=== PATIENT | female | born 1975 | race Caucasian/White ===

== ENCOUNTER 2017-01-03 18:11 | Inpatient (IN) | payer OTHER ==
[~2017-01-03] VITALS: Ht 162.6 cm; Wt 98.9 kg
[~2017-01-03 18:11] MED LIST: CEPH500C3 PO; IBUP600 PO; PRENCAP6 PO
[2017-01-03] MEDS ORDERED: DINOPROSTONE 10 MG INSERT-LEAVE FOR 12 HOURS VAGINAL ONE (19:00)
[2017-01-03] MEDS ORDERED: NS 1000 ML OTHER PRN (19:00)
[2017-01-03] MEDS: LACTATED RINGER'S 1000 ML INJ 1,000 ML IV SCH (19:00)
[2017-01-03] MEDS: LACTATED RINGER'S 1000 ML IV SCH (20:22)
[2017-01-03] MEDS ORDERED: CITRIC ACID-SODIUM CITRATE LIQ 30 ML UDC PO SCH (21:00)
[2017-01-03] MEDS ORDERED: LACTATED RINGER'S 1000 ML BOLUS IV PRN (21:00)
[2017-01-03] MEDS ORDERED: LIDOCAINE HCL 1% 50 ML VIAL INFIL PRN (21:00)
[2017-01-03] MEDS ORDERED: ONDANSETRON HCL 4 MG/2 ML VIAL IV PRN (21:00)
[2017-01-03] MEDS ORDERED: OXYTOCIN 30 UNITS 500ML PREMIX IV ONE (21:00)
[2017-01-03] MEDS ORDERED: MINERAL OIL 10 ML VIAL TOPICAL PRN (21:00)
[2017-01-03] MEDS ORDERED: ZOLPIDEM TARTRATE 10 MG TAB PO PRN (21:00)
[2017-01-03] MEDS ORDERED: LIDOCAINE HCL 1% 50 ML VIAL I-DERMAL PRN (21:00)
[2017-01-03] MEDS ORDERED: NS 1000 ML IV PRN (21:00)
[2017-01-03] MEDS ORDERED: NS 500 ML BOLUS IV PRN (21:00)
[2017-01-03 21:31] VITALS: BP 125/42; PULSE 89
[2017-01-03 21:41] LABS: AUTOMATED NEUTROPHIL # 5.9 TH/MM3 (1.8-7.7); BASOPHIL % 0.4 % (0.0-2.0); EOSINOPHIL # 0.4 TH/MM3 (0-0.4); EOSINOPHIL % 3.5 % (0.0-4.0); HEMATOCRIT 34.3 % (35.0-46.0); HEMO FLAGS DIFF FINAL; LYMPH % 30.8 % (9.0-44.0); LYMPHOCYTE # 3.1 TH/MM3 (1.0-4.8); MEAN CELL VOLUME 85.1 FL (80.0-100.0); MEAN CORPUSCULAR HEMOGLOBIN 28.5 PG (27.0-34.0); MEAN CORPUSCULAR HGB CONC 33.5 % (32.0-36.0); MONO % 7.3 % (0.0-8.0); PLATELET COUNT 319 TH/MM3 (150-450); RED BLOOD COUNT 4.03 MIL/MM3 (4.00-5.30); RED CELL DISTRIBUTION WIDTH 15.5 % (11.6-17.2); WHITE BLOOD COUNT 10.2 TH/MM3 (4.0-11.0)
[2017-01-03 21:45] LABS: BACTERIA, URINE OCC /hpf; BLOOD, URINE NEG (NEG); COMMENT (UR) CULT NOT INDICATED; CULTURE IF INDICATED CULT NOT INDICATED; GLUCOSE,URINE NEG (NEG); KETONE, URINE NEG (NEG); MUCUS URINE FEW /lpf (OCC); NITRITE,URINE NEG (NEG); PH, URINE 6.5 (5.0-8.5); SQUAMOUS EPITHELIAL CELL URINE 8 /hpf (0-5); URINE COLOR YELLOW (YELLW/STRAW)
[2017-01-03 23:14] VITALS: TEMP 98
[2017-01-04] VITALS (166 sets, daily range): BP systolic 99–139; BP diastolic 24–93; PULSE 18–103; RESP 16–20; TEMP 97.9–98.8; O2SAT 91–100
[2017-01-04] MEDS: LACTATED RINGER'S 1000 ML INJ 1,000 ML IV SCH ×2 (01:43→05:38)
[2017-01-04] MEDS: LACTATED RINGER'S 1000 ML IV SCH ×2 (01:43→13:53)
[2017-01-04] MEDS ORDERED: fentaNYL 2MCG-BUPIV 0.125% INJ 100 ML ONE ×2 (05:00→13:51)
--- NOTE | 2017-01-04 08:50 | PD.LABORPN ---
Subjective Subjective comfortable with epidural in place Objective Vital Signs Vital Signs Date Time Temp Pulse Resp B/P Pulse Ox O2 Delivery O2 Flow Rate FiO2 01/04/17 08:35 82 01/04/17 08:30 89 01/04/17 08:30 94 100/50 01/04/17 08:25 85 01/04/17 08:20 83 01/04/17 08:16 82 01/04/17 08:15 81 01/04/17 08:10 85 01/04/17 08:05 84 01/04/17 08:01 92 01/04/17 08:01 85 104/53 01/04/17 08:00 86 01/04/17 07:55 87 01/04/17 07:50 85 01/04/17 07:46 87 110/44 01/04/17 07:45 84 01/04/17 07:40 91 01/04/17 07:35 85 01/04/17 07:30 87 01/04/17 07:30 86 116/60 01/04/17 07:30 100 01/04/17 07:27 98.3 01/04/17 07:25 99 01/04/17 07:25 83 01/04/17 07:20 99 01/04/17 07:20 80 01/04/17 07:15 99 01/04/17 07:15 86 01/04/17 07:15 84 114/62 01/04/17 07:10 81 98 01/04/17 07:05 78 01/04/17 07:05 98 01/04/17 07:00 79 115/61 01/04/17 07:00 98 01/04/17 07:00 79 01/04/17 06:55 98 01/04/17 06:55 81 01/04/17 06:50 97 01/04/17 06:50 80 01/04/17 06:45 98 01/04/17 06:45 78 01/04/17 06:45 80 119/55 01/04/17 06:40 78 01/04/17 06:35 77 01/04/17 06:30 77 01/04/17 06:30 80 112/56 01/04/17 06:25 79 01/04/17 06:20 83 01/04/17 06:15 86 01/04/17 06:15 77 109/55 4/13/17 06:10 84 01/04/17 06:05 77 01/04/17 06:01 82 114/56 01/04/17 06:00 80 01/04/17 05:55 81 01/04/17 05:50 87 01/04/17 05:45 91 16 126/59 01/04/17 05:45 83 01/04/17 05:40 85 01/04/17 05:38 76 128/52 01/04/17 05:38 20 01/04/17 05:35 78 01/04/17 05:31 78 131/57 01/04/17 05:30 78 18 01/04/17 05:26 75 130/48 01/04/17 05:25 78 01/04/17 05:21 76 139/69 01/04/17 05:20 77 01/04/17 05:16 76 124/93 01/04/17 05:15 81 01/04/17 05:11 72 130/58 01/04/17 05:10 75 01/04/17 05:06 72 127/58 01/04/17 05:05 76 01/04/17 05:03 72 128/60 01/04/17 04:37 97.9 01/04/17 04:11 18 01/04/17 04:03 86 123/59 01/04/17 01:43 83 121/60 Objective Pelvic Exam: Cervix: 6/50/-3, posterior medium consistency. [facility] Membranes: [intact Uterine Contractions: irreg FHT's: Category: I Baseline: 140 Reactive: y Variability:mod Decels: [-] Assessment/Plan Problem List: (1) AMA (advanced maternal age) multigravida 35+ (2) Fibroid (3) Glucose tolerance decreased (4) Bartholin cyst (5) Rubella non-immune status, antepartum Assessment and Plan 41 yo with iop at 39w1d here for iol for suspected macrosomia 1) IOL s/p cervidil overnight, removed at 5 am for contractions. Attempted arom but cervix stil posterior and high station. will start pitocin 2) AMA- nl anatomy scan, cfdna negative 3) Bartholin cyst - present for several years, no current abscess or pain 4) H/o macrosomia- EFW projected to be 9.5 lb, shoulder dystocia precautions 5) Fibroid uterus 6) Rubella [id number]- will need immunization pp 7) GBS neg Ada Colón MD Jan 04, 2017 08:50
[2017-01-04] MEDS ORDERED: OXYTOCIN 30 UNITS-500ML PREMIX 500 ML IV SCH (10:00)
--- NOTE | 2017-01-04 10:03 | HHI.HP ---
HPI Date Seen: Jan 03, 2017 Travel History International Travel<30 Days: No Contact w/Intl Traveler<30Days: No Known Affected Area: No History of Present Illness HPI 41 yo with iup at 39 wk. She was seen in clinic for meagan visit. + FM, neg vb/lof, ctx. She had a growth u/s at 35 wk that noted a 7 lb 7oz baby. She does have h/o macrosomia. She desires iol. Para: 1 Miscarriage: 2 History Past Medical History Narrative Medical AMA, fibroids, bartholin cyst, rubella non-immune Childhood asthma left breast cyst Obstetric History Obstetric History SAB x 2, one D&C 41 wk ftsvd 9 lb 4 oz Past Surgical History Narrative Surgical D&C Family History Family History: Negative Social History Alcohol Use: No Tobacco Use: No Substance Abuse: No Allergies-Medications (Allergen,Severity, Reaction): Uncoded Allergies: BART (Allergy, Unknown, 12/28/14) Home Meds Active Scripts Cephalexin (Keflex)500 Mg Uan875 Mg PO Q8 7 Days Ref 0 Prov:Italia Saxena CNM [facility] 12/31/14 Ibuprofen (Motrin 600 Mg Tab)600 Mg Qmg099 Mg PO Q6H PRN ( CRAMPING) # 30 TAB Ref 0 Prov:Italia Saxena CNM [facility] 12/31/14 Reported Medications Mv & Min W/Fe Fumarat ( 1) Cap1 Cap PO DAILY 12/28/14 Review of Systems General / Constitutional: No: Fever, Weight Gain, Chills, Other Eyes: No: Diploplia, Blurred Vision, Visual changes, Pain, Photophobia HENT: No: Headaches, Vertigo, Lightheadedness Cardiovascular: No: Irregular Rhythm, Chest Pain or Discomfort, Palpitations, Tachycardia, Syncope, Varicosities, Edema, Cyanosis Respiratory: No: Cough, Short of Breath, Other Gastrointestinal: No: Nausea, Vomiting, Diarrhea Genitourinary: No: Decreased Urinary Output, Oliguria Musculoskeletal: No: Limited ROM, Weakness, Cramping, Edema, Pain Skin: No Rash, No Itching, No Dryness, No Lumps, No Change in Pigmentation, No Change in Nails, No Alopecia, No Lesions Neurologic: No: Weakness, Dizziness, Syncope, Focal Abnormalities, Coordination Problem, Headache, Slurred Speech, Seizures Psychiatric: No: Depression, Suicidal Ideations, Homicidal Ideation Endocrine: No: Heat Intolerance, Cold Intolerance, Polydipsia, Polyuria, Other Physical Exam Vital Signs Date Time Temp Pulse Resp B/P Pulse Ox O2 Delivery O2 Flow Rate FiO2 01/04/17 09:27 20 01/04/17 09:25 76 01/04/17 09:20 77 01/04/17 09:16 78 128/65 01/04/17 09:15 78 01/04/17 09:00 79 01/04/17 09:00 76 130/61 01/04/17 08:55 80 01/04/17 08:50 78 01/04/17 08:45 78 01/04/17 08:45 82 122/63 01/04/17 08:35 82 01/04/17 08:30 89 01/04/17 08:30 94 100/50 01/04/17 08:25 85 01/04/17 08:20 83 01/04/17 08:16 82 01/04/17 08:15 81 01/04/17 08:10 85 01/04/17 08:05 84 01/04/17 08:01 92 01/04/17 08:01 85 104/53 01/04/17 08:00 86 01/04/17 07:55 87 01/04/17 07:50 85 01/04/17 07:46 87 110/44 01/04/17 07:45 84 01/04/17 07:40 91 01/04/17 07:35 85 01/04/17 07:30 87 01/04/17 07:30 86 116/60 01/04/17 07:30 100 01/04/17 07:27 98.3 01/04/17 07:25 99 01/04/17 07:25 83 01/04/17 07:20 99 01/04/17 07:20 80 01/04/17 07:15 99 01/04/17 07:15 86 01/04/17 07:15 84 114/62 01/04/17 07:10 81 98 01/04/17 07:05 78 01/04/17 07:05 98 01/04/17 07:00 79 115/61 01/04/17 07:00 98 01/04/17 07:00 79 01/04/17 06:55 98 01/04/17 06:55 81 01/04/17 06:50 97 01/04/17 06:50 80 01/04/17 06:45 98 01/04/17 06:45 78 01/04/17 06:45 80 119/55 01/04/17 06:40 78 01/04/17 06:35 77 01/04/17 06:30 77 01/04/17 06:30 80 112/56 01/04/17 06:25 79 01/04/17 06:20 83 01/04/17 06:15 86 01/04/17 06:15 77 109/55 01/04/17 06:10 84 01/04/17 06:05 77 01/04/17 06:01 82 114/56 01/04/17 06:00 80 01/04/17 05:55 81 01/04/17 05:50 87 01/04/17 05:45 91 16 126/59 01/04/17 05:45 83 01/04/17 05:40 85 01/04/17 05:38 76 128/52 01/04/17 05:38 20 01/04/17 05:35 78 01/04/17 05:31 78 131/57 01/04/17 05:30 78 18 01/04/17 05:26 75 130/48 01/04/17 05:25 78 01/04/17 05:21 76 139/69 01/04/17 05:20 77 01/04/17 05:16 76 124/93 01/04/17 05:15 81 01/04/17 05:11 72 130/58 01/04/17 05:10 75 01/04/17 05:06 72 127/58 01/04/17 05:05 76 01/04/17 05:03 72 128/60 01/04/17 04:37 97.9 01/04/17 04:11 18 01/04/17 04:03 86 123/59 01/04/17 01:43 83 121/60 01/03/17 23:14 98.0 01/03/17 21:31 89 125/42 Narrative GENERAL: Well-nourished, well-developed patient. SKIN: Warm and dry. HEAD: Normocephalic and atraumatic. EYES: No scleral icterus. No injection or drainage. ENT: No nasal drainage noted. Mucous membranes pink. Airway patent. NECK: Supple, trachea midline. No JVD. CARDIOVASCULAR: Regular rate and rhythm without murmurs, gallops, or rubs. RESPIRATORY: Breath sounds equal bilaterally. No accessory muscle use. ABDOMEN/GI: Abdomen soft, non-tender, bowel sounds present, no rebound, no guarding Gravid to 41 weeks size Fundal Height: [-] GENITOURINARY: External Genitalia: intact and normal in appearance BUS glands: bartholin cyst left labia Cervix: ft/th/high Presentation: ceph Membranes: [intact Uterine Contractions: irreg FHT's: Category:I on admission EXTREMITIES: No cyanosis or edema. BACK: Nontender without obvious deformity. No CVA tenderness. NEUROLOGICAL: Awake and alert. Motor and sensory grossly within normal limits. Five out of 5 muscle strength in all muscle groups. Normal speech. Data Data Vital Signs Reviewed: Yes Orders Physician Name Changes (01/03/17 ) Admit To Inpatient (01/03/17 ) Vital Signs (Adult) .Per protocol (01/03/17 20:38) Activity Oob Ad Armida (01/03/17 20:38) Heart (01/03/17 20:38) Amnioinfusion (01/03/17 20:38) Urinary Catheter Management .ONCE (01/03/17 20:38) Diet Liquid (01/04/17 Breakfast) Complete Blood Count With Diff (01/03/17 20:38) Hold Clot (01/03/17 20:38) Abo/Rh Blood Type (01/03/17 20:38) Urinalysis - C+S If Indicated (01/03/17 20:38) Resp Oxygen Non Rebreathe Mask (01/03/17 ) ^ Epidural / Intrathecal Infus (01/03/17 20:38) Lactated Ringer's 1000 Ml Inj (Lr 1000 M (01/03/17 21:00) Lactated Ringer's 1000 Ml Inj (Lr 1000 M (01/03/17 21:00) Sodium Chlorid 0.9% 500 Ml Inj (Ns 500 M (01/03/17 21:00) Sodium Chlor 0.9% 1000 Ml Inj (Ns 1000 M (01/03/17 21:00) Lidocaine 1% Inj (50 Ml) (Xylocaine 1% I (01/03/17 21:00) Citric Acid-Sodium Citrate Liq (Bicitra (01/03/17 21:00) Ondansetron Inj (Zofran Inj) (01/03/17 21:00) Fentanyl Inj (Fentanyl Inj) (01/03/17 21:00) Fentanyl Inj (Fentanyl Inj) (01/03/17 21:00) Oxytocin 30 Units-500ml Premix (Pitocin (01/03/17 21:00) Lidocaine 1% Inj (50 Ml) (Xylocaine 1% I (01/03/17 21:00) Light Mineral Oil (Muri-Lube Oil) (01/03/17 21:00) Zolpidem (Ambien) (01/03/17 21:00) Admit To Inpatient (01/03/17 ) Activity Oob Ad Armida (01/03/17 21:01) ^ Labor Induction (01/03/17 21:01) ^ Vaginal Insert (01/03/17 21:01) ^ Vaginal Lavage (01/03/17 21:01) Heart (01/03/17 21:01) Dinoprostone Vag Insert (Cervidil Vag In (01/03/17 19:00) Lactated Ringer's 1000 Ml Inj (Lr 1000 M (01/03/17 19:00) Sodium Chlor 0.9% 1000 Ml Inj (Ns 1000 M (01/03/17 19:00) Fentanyl 2mcg-Bupiv 0.125% Inj (Fentanyl (01/04/17 05:00) ^ Place On Chart (01/04/17 ) ^ Medication Indications (01/04/17 ) Consent (01/04/17 ) ^ No Systemic Narcotics (01/04/17 ) ^ Call Anesthesiologist (01/04/17 ) ^ Discontinue Epidural Cathete (01/04/17 ) Anticoagulant Alert (01/04/17 ) ^ Epidural Alert (01/04/17 ) ^ Non Stress Test (01/04/17 09:05) Response To Medication .Post New Med Administration, Reaction (01/04/17 09:05) ^ Discontinue Medication (01/04/17 09:05) Oxytocin 30 Units-500ml Premix (Pitocin (01/04/17 10:00) Labs Laboratory Tests Test 01/03/17 20:25 White Blood Count 10.2 Red Blood Count 4.03 Hemoglobin 11.5 Hematocrit 34.3 Mean Corpuscular Volume 85.1 Mean Corpuscular Hemoglobin 28.5 Mean Corpuscular Hemoglobin 33.5 Concent Red Cell Distribution Width 15.5 Platelet Count 319 Mean Platelet Volume 8.6 Neutrophils (%) (Auto) 58.0 Lymphocytes (%) (Auto) 30.8 Monocytes (%) (Auto) 7.3 Eosinophils (%) (Auto) 3.5 Basophils (%) (Auto) 0.4 Neutrophils # (Auto) 5.9 Lymphocytes # (Auto) 3.1 Monocytes # (Auto) 0.7 Eosinophils # (Auto) 0.4 Basophils # (Auto) 0.0 CBC Comment DIFF FINAL Differential Comment Urine Color YELLOW Urine Turbidity HAZY Urine pH 6.5 Urine Specific [place] 1.024 Urine Protein TRACE Urine Glucose (UA) NEG Urine Ketones NEG Urine Occult Blood NEG Urine Nitrite NEG Urine Bilirubin NEG Urine Urobilinogen LESS THAN 2.0 Urine Leukocyte Esterase SMALL Urine RBC 1 Urine WBC 2 Urine Squamous Epithelial 8 Cells Urine Bacteria OCC Urine Mucus FEW Microscopic Urinalysis Comment CULT NOT INDICATED Blood Type O POSITIVE Band and Hold Assessment/Plan Problem List: (1) AMA (advanced maternal age) multigravida 35+ (2) Fibroid (3) Glucose tolerance decreased (4) Bartholin cyst (5) Rubella non-immune status, antepartum Assessment and Plan 41 yo with iop at 39w0d here for iol for suspected macrosomia 1) IOL will start with cervidil. aware of iol being prolonged, increased risk of cd, risk of SD, arrest of labor due to macrosomia. She does have pelvis proven to 9 lb 5 oz 2) AMA- nl anatomy scan, cfdna negative 3) Bartholin cyst - present for several years, no current abscess or pain 4) H/o macrosomia- EFW projected to be 9.5 lb, shoulder dystocia precautions 5) Fibroid uterus 6) Rubella [id number]- will need immunization pp 7) GBS neg Colón,Ada Ace MD Jan 04, 2017 10:03
--- NOTE | 2017-01-04 11:11 | PD.LABORPN ---
Subjective Subjective comfortable with epidural Objective Vital Signs Vital Signs Date Time Temp Pulse Resp B/P Pulse Ox O2 Delivery O2 Flow Rate FiO2 01/04/17 10:50 84 01/04/17 10:45 87 01/04/17 10:45 84 123/69 01/04/17 10:40 82 01/04/17 10:35 91 01/04/17 10:30 81 01/04/17 10:30 87 119/52 01/04/17 10:25 85 01/04/17 10:20 84 01/04/17 10:15 80 01/04/17 10:15 84 115/61 01/04/17 10:10 83 01/04/17 10:05 86 01/04/17 10:00 82 01/04/17 10:00 86 116/52 01/04/17 09:55 85 01/04/17 09:50 86 01/04/17 09:46 84 111/44 01/04/17 09:45 88 01/04/17 09:40 88 01/04/17 09:35 91 01/04/17 09:31 81 134/45 01/04/17 09:30 82 01/04/17 09:27 20 01/04/17 09:25 76 01/04/17 09:20 77 01/04/17 09:16 78 128/65 01/04/17 09:15 78 01/04/17 09:00 79 01/04/17 09:00 76 130/61 01/04/17 08:55 80 01/04/17 08:50 78 01/04/17 08:45 78 01/04/17 08:45 82 122/63 01/04/17 08:35 82 01/04/17 08:30 89 01/04/17 08:30 94 100/50 01/04/17 08:25 85 01/04/17 08:20 83 01/04/17 08:16 82 01/04/17 08:15 81 01/04/17 08:10 85 01/04/17 08:05 84 01/04/17 08:01 92 01/04/17 08:01 85 104/53 01/04/17 08:00 86 01/04/17 07:55 87 01/04/17 07:50 85 01/04/17 07:46 87 110/44 01/04/17 07:45 84 01/04/17 07:40 91 01/04/17 07:35 85 01/04/17 07:30 87 01/04/17 07:30 86 116/60 01/04/17 07:30 100 01/04/17 07:27 98.3 01/04/17 07:25 99 01/04/17 07:25 83 01/04/17 07:20 99 01/04/17 07:20 80 01/04/17 07:15 99 01/04/17 07:15 86 01/04/17 07:15 84 114/62 01/04/17 07:10 81 98 01/04/17 07:05 78 01/04/17 07:05 98 01/04/17 07:00 79 115/61 01/04/17 07:00 98 01/04/17 07:00 79 01/04/17 06:55 98 01/04/17 06:55 81 01/04/17 06:50 97 01/04/17 06:50 80 01/04/17 06:45 98 01/04/17 06:45 78 01/04/17 06:45 80 119/55 01/04/17 06:40 78 01/04/17 06:35 77 01/04/17 06:30 77 01/04/17 06:30 80 112/56 01/04/17 06:25 79 01/04/17 06:20 83 01/04/17 06:15 86 01/04/17 06:15 77 109/55 01/04/17 06:10 84 01/04/17 06:05 77 01/04/17 06:01 82 114/56 01/04/17 06:00 80 01/04/17 05:55 81 01/04/17 05:50 87 01/04/17 05:45 91 16 126/59 01/04/17 05:45 83 01/04/17 05:40 85 01/04/17 05:38 76 128/52 01/04/17 05:38 20 01/04/17 05:35 78 01/04/17 05:31 78 131/57 01/04/17 05:30 78 18 01/04/17 05:26 75 130/48 01/04/17 05:25 78 01/04/17 05:21 76 139/69 01/04/17 05:20 77 01/04/17 05:16 76 124/93 01/04/17 05:15 81 01/04/17 05:11 72 130/58 01/04/17 05:10 75 01/04/17 05:06 72 127/58 01/04/17 05:05 76 01/04/17 05:03 72 128/60 01/04/17 04:37 97.9 01/04/17 04:11 18 01/04/17 04:03 86 123/59 Objective Pelvic Exam: 4 cm/50%/-1 AROM blood tinged and well applied strip category one Assessment/Plan Problem List: (1) AMA (advanced maternal age) multigravida 35+ (2) Fibroid (3) Glucose tolerance decreased (4) Bartholin cyst (5) Rubella non-immune status, antepartum Assessment and Plan anticipate Lizbet Wilson MD Jan 04, 2017 11:11
[2017-01-04] MEDS ORDERED: ePHEDrine/NS 25 MG/5 ML SYR IV PRN (14:15)
[2017-01-04] MEDS ORDERED: DO NOT ADMINISTER ANTICOAGULANTS PRN (15:00)
[2017-01-04] MEDS ORDERED: NO SYSTEM NARCOTICS PRN (15:00)
[2017-01-04] MEDS ORDERED: fentaNYL 2MCG-BUPIV 0.125% 100 ML EPIDURAL SCH (15:00)
[2017-01-04] MEDS ORDERED: SODIUM BICARBONATE 8.4% INJ 50 MEQ/50 ML SYR IV ONE (20:15)
[2017-01-04] MEDS ORDERED: LACTATED RINGER'S 1000 ML INJ 1,000 ML IV ONE (20:26)
[2017-01-04] MEDS ORDERED: DICLOFENAC SODIUM 37.5 MG/ML VIAL IV PUSH ONE (20:39)
[2017-01-04] MEDS ORDERED: OXYTOCIN 10 UNIT/ML AMP ONE (20:39)
[2017-01-04] MEDS ORDERED: OXYTOCIN INJ 20 UNITS in LACTATED RINGER'S 1000 ML INJ 1,000 ML IV ONE ×2 (20:55→21:20)
[2017-01-04] MEDS ORDERED: LACTATED RINGER'S 1000 ML INJ 1,000 ML IV SCH (20:56)
[2017-01-04] MEDS ORDERED: ACETAMINOPHEN 1000 MG/100 ML VIAL IV SCH (21:00)
[2017-01-04] MEDS ORDERED: EPIDURAL-DIPHENHYDRAMINE HCL 50 MG CAP PO PRN (21:00)
[2017-01-04] MEDS ORDERED: EPIDURAL-NALOXONE HCL 0.4 MG/ML AMP IV PRN (21:00)
[2017-01-04] MEDS ORDERED: EPIDURAL-DIPHENHYDRAMINE HCL 50 MG/ML VIAL IV PUSH PRN (21:00)
[2017-01-04] MEDS ORDERED: EPIDURAL-NO SYSTEMIC NARCOTICS PRN (21:00)
[2017-01-04] MEDS ORDERED: EPIDURAL-DO NOT ADMINISTER ANTICOAGULANTS PRN (21:00)
[2017-01-04] MEDS ORDERED: CARBOPROST TROMETHAMINE 250 MCG/ML VIAL ONE (21:05)
[2017-01-04] MEDS ORDERED: ceFAZolin 2 GM PREMIX 50 ML IV SCH (21:30)
[2017-01-04] MEDS ORDERED: CITRIC ACID-SODIUM CITRATE LIQ 30 ML UDC PO SCH (22:00)
[2017-01-04] MEDS ORDERED: MORPHINE SULFATE PF 5 MG/10 ML VIAL ONE (22:07)
[2017-01-04] MEDS ORDERED: ONDANSETRON HCL 4 MG/2 ML VIAL ONE (22:07)
--- NOTE | 2017-01-04 22:13 | PD.OB.DELI ---
Procedure Note Section Procedure Pre Op Diagnosis: (1) Arrested labor (2) AMA (advanced maternal age) multigravida 35+ (3) Fibroid (4) Glucose tolerance decreased (5) Bartholin cyst (6) Rubella non-immune status, antepartum Post Op Diagnosis: (1) Arrested labor (2) AMA (advanced maternal age) multigravida 35+ (3) Fibroid (4) Glucose tolerance decreased (5) Bartholin cyst (6) Rubella non-immune status, antepartum Performed by Ada Colón Procedure: Primary Low Transverse Sec (lysis of adhesions) Indication for delivery: malposition (Left occiput transverse and arrest of descent) Informed consent obtained: For anesthesia, For procedure Confirmed correct: Patient, Procedure, Site, Time-out taken Anesthesia: Epidural Medication prior to procedure: As documented in eMAR Monitoring during procedure: Blood pressure monitoring, Pulse oximetry Urinary catheter: Inserted using sterile technique, To dependent drainage, ml urine output (200) Sterile preparation: With 2% chlorexidine (Hibiclens) Position: Supine with wedge to right side, Supine with safety belt applied Operative Features Skin Incision: Pfannenstiel Uterine Incision: Low transverse w/knife / blunt ext Membranes Ruptured: Previously, Appearance of fluid (cl) Presentation: Other (LOT) Delivery of : Uneventful Infant: Male Weight: 9 lb 14 oz Status of infant: Viable, Cord blood, Nursery present Placenta delivered: Intact Medications: Antibiotics, Oxytocin, Other (hemabate) Estimated blood loss: 800ml Procedure tolerated: Well Maternal Condition: Stable Condition: Stable Ada Colón MD Jan 04, 2017 22:13
[2017-01-04] MEDS ORDERED: ZOLPIDEM TARTRATE 5 MG TAB PO PRN (22:15)
[2017-01-04] MEDS ORDERED: DOCUSATE SODIUM 50 MG/SENNA 8.6 MG TAB PO PRN (22:15)
[2017-01-04] MEDS ORDERED: OXYTOCIN 30 UNITS-500ML PREMIX 500 ML IV ONE (22:15)
[2017-01-04] MEDS ORDERED: SODIUM CHLORIDE 0.9% FLUSH 10 ML FLUSH IV FLUSH PRN (22:15)
[2017-01-04] MEDS ORDERED: ACETAMINOPHEN 325 MG TAB PO PRN (22:15)
[2017-01-04] MEDS ORDERED: oxyCODONE/ACETAMINOPHEN 5 MG/325 MG TAB PO PRN ×2 (22:15)
[2017-01-04] MEDS ORDERED: ONDANSETRON HCL 4 MG/2 ML VIAL IV PUSH PRN (22:15)
[2017-01-04] MEDS ORDERED: ACETAMINOPHEN 1000 MG/100 ML VIAL IV ONE ×2 (22:15→22:41)
[2017-01-05 00:05] VITALS: BP 107/49; PULSE 83; RESP 18; TEMP 98.4
[2017-01-05] MEDS ORDERED: LACTATED RINGER'S 1000 ML INJ 1,000 ML IV SCH (03:13)
[2017-01-05 04:10] VITALS: BP 95/56; PULSE 81; RESP 18; TEMP 97.6
[2017-01-05] MEDS: DICLOFENAC SODIUM 37.5 MG/ML VIAL IV PUSH SCH ×2 (04:26→15:00)
[2017-01-05 06:00] LABS: BASOPHIL % 0.1 % (0.0-2.0); EOSINOPHIL % 0.2 % (0.0-4.0); HEMATOCRIT 29.1 % (35.0-46.0); HEMO FLAGS DIFF FINAL; LYMPH % 10.1 % (9.0-44.0); LYMPHOCYTE # 1.8 TH/MM3 (1.0-4.8); MEAN CELL VOLUME 85.4 FL (80.0-100.0); MEAN CORPUSCULAR HEMOGLOBIN 27.9 PG (27.0-34.0); MEAN CORPUSCULAR HGB CONC 32.6 % (32.0-36.0); MONO % 5.7 % (0.0-8.0); NEUT % 83.9 % (16.0-70.0); PLATELET COUNT 256 TH/MM3 (150-450); RED BLOOD COUNT 3.41 MIL/MM3 (4.00-5.30); RED CELL DISTRIBUTION WIDTH 15.5 % (11.6-17.2); WHITE BLOOD COUNT 17.9 TH/MM3 (4.0-11.0)
[2017-01-05] MEDS ORDERED: OXYTOCIN 30 UNITS-500ML PREMIX 500 ML IV PRN (08:15)
--- NOTE | 2017-01-05 08:17 | HHI.OB ---
Subjective Post Operative Day: 1 Remarks Stable, pain managable Objective Vitals/I&O Vital Signs Date Time Temp Pulse Resp B/P Pulse Ox O2 Delivery O2 Flow Rate FiO2 01/05/17 04:10 81 95/56 01/05/17 04:10 97.6 18 01/05/17 00:05 83 18 107/49 01/05/17 00:05 98.4 01/04/17 23:20 82 18 114/76 01/04/17 23:05 18 01/04/17 23:05 18 01/04/17 23:00 117/58 01/04/17 23:00 83 91 01/04/17 22:50 83 18 114/56 97 01/04/17 22:34 80 119/55 96 01/04/17 22:05 18 01/04/17 22:05 95 01/04/17 22:05 98.0 86 18 01/04/17 22:05 99/45 01/04/17 19:57 98.0 01/04/17 18:45 93 115/51 01/04/17 18:15 91 104/54 01/04/17 17:45 88 126/59 01/04/17 17:30 88 123/69 01/04/17 17:15 88 122/56 01/04/17 17:01 100 126/60 01/04/17 17:00 18 01/04/17 17:00 98.7 01/04/17 16:45 91 112/62 01/04/17 16:41 20 01/04/17 16:30 93 108/62 01/04/17 16:15 95 105/59 01/04/17 16:02 94 118/43 01/04/17 16:01 93 112/24 01/04/17 15:45 95 131/65 01/04/17 15:30 89 127/62 01/04/17 15:25 90 01/04/17 15:20 103 01/04/17 15:15 91 110/55 01/04/17 15:15 94 01/04/17 15:10 93 01/04/17 15:05 97 01/04/17 15:03 95 01/04/17 15:01 97 01/04/17 15:00 98.8 01/04/17 15:00 99 01/04/17 14:55 102 01/04/17 14:50 99 01/04/17 14:45 94 01/04/17 14:45 98 123/54 01/04/17 14:40 95 01/04/17 14:35 96 01/04/17 14:30 95 127/57 01/04/17 14:30 97 01/04/17 14:25 93 01/04/17 14:20 87 01/04/17 14:15 86 125/62 01/04/17 14:15 93 01/04/17 14:10 86 01/04/17 14:05 85 01/04/17 14:01 90 109/46 01/04/17 14:00 88 01/04/17 13:55 86 01/04/17 13:54 18 01/04/17 13:50 86 01/04/17 13:46 85 111/54 01/04/17 13:45 86 01/04/17 13:40 93 01/04/17 13:35 84 01/04/17 13:31 78 121/52 01/04/17 13:30 81 18 01/04/17 13:25 83 01/04/17 13:21 98.3 01/04/17 13:20 90 01/04/17 13:15 86 117/56 01/04/17 13:15 92 01/04/17 13:05 88 01/04/17 13:00 85 102/50 01/04/17 13:00 16 01/04/17 13:00 82 01/04/17 12:55 86 01/04/17 12:50 86 01/04/17 12:45 16 01/04/17 12:45 81 01/04/17 12:45 86 106/48 01/04/17 12:40 85 01/04/17 12:35 83 01/04/17 12:30 84 103/48 01/04/17 12:30 89 01/04/17 12:15 88 109/46 01/04/17 12:15 92 01/04/17 12:10 88 01/04/17 12:05 86 01/04/17 12:00 89 111/50 01/04/17 12:00 86 01/04/17 11:40 82 01/04/17 11:35 81 01/04/17 11:31 92 129/65 4/13/17 11:30 90 01/04/17 11:25 92 01/04/17 11:20 83 01/04/17 11:16 89 122/74 01/04/17 11:15 81 01/04/17 11:05 81 01/04/17 11:00 83 123/68 01/04/17 11:00 98.1 01/04/17 11:00 80 01/04/17 10:55 85 01/04/17 10:50 84 01/04/17 10:45 87 01/04/17 10:45 84 123/69 01/04/17 10:40 82 01/04/17 10:35 91 01/04/17 10:30 81 01/04/17 10:30 87 119/52 01/04/17 10:25 85 01/04/17 10:20 84 01/04/17 10:15 80 01/04/17 10:15 84 115/61 01/04/17 10:10 83 01/04/17 10:05 86 01/04/17 10:00 82 01/04/17 10:00 86 116/52 01/04/17 09:55 85 01/04/17 09:50 86 01/04/17 09:46 84 111/44 01/04/17 09:45 88 01/04/17 09:40 88 01/04/17 09:35 91 01/04/17 09:31 81 134/45 01/04/17 09:30 82 01/04/17 09:27 20 01/04/17 09:25 76 01/04/17 09:20 77 01/04/17 09:16 78 128/65 01/04/17 09:15 78 01/04/17 09:00 79 01/04/17 09:00 76 130/61 01/04/17 08:55 80 01/04/17 08:50 78 01/04/17 08:45 78 01/04/17 08:45 82 122/63 01/04/17 08:35 82 01/04/17 08:30 89 01/04/17 08:30 94 100/50 01/04/17 08:25 85 01/04/17 08:20 83 01/04/17 08:16 82 01/04/17 08:15 81 Result Diagram: 4/14/17 0538 Objective Remarks GENERAL: Well-nourished, well-developed patient. CARDIOVASCULAR: Regular rate and rhythm without murmurs, gallops, or rubs. RESPIRATORY: Breath sounds equal bilaterally. No accessory muscle use. ABDOMEN/GI: Abdomen soft, non-tender, bowel sounds present. Incision: Clean, dry and intact. Fundus: Firm, non-tender at umbilicus. GENITOURINARY: Light to moderate bleeding. EXTREMITIES: No cyanosis or edema, non-tender, without signs of DVT. Medications and IVs Current Medications Medications (Trade) Dose Ordered Sig/Bharat Route Start Time Stop Time Status Last Admin (Lr 1000 ml Inj) 1,000 ml @ 100 mls/hr Q10H IV 01/05/17 03:13 01/05/17 23:12 01/05/17 04:27 (NS Flush) 2 ml BID IV FLUSH 01/05/17 09:00 (NS Flush) 2 ml UNSCH PRN IV FLUSH 01/04/17 22:15 (Mylicon Chew) 80 mg QID PRN PO 01/04/17 22:15 (Tylenol) 650 mg Q6H PRN PO 01/04/17 22:15 (Motrin) 600 mg Q6H PRN PO 01/04/17 22:15 (Percocet 5-325 Mg) 1 tab Q4H PRN PO 01/04/17 22:15 (Percocet 5-325 Mg) 2 tab Q4H PRN PO 01/04/17 22:15 (Linnette-Colace) 2 tab Q12H PRN PO 01/04/17 22:15 (Ambien) 5 mg HS PRN PO 01/04/17 22:15 (M-M-R Ii Inj) 0.5 ml ONCE ONCE SQ 01/05/17 16:00 01/05/17 16:01 (Boostrix Inj) 0.5 ml ONCE ONCE IM 01/05/17 16:00 01/05/17 16:01 (Zofran Inj) 4 mg Q6H PRN IV PUSH 01/04/17 22:15 Miscellaneous Information NO SYSTEMIC NARCOTICS TO BE GIVEN FO... UNSCH PRN .XX 01/04/17 21:00 01/05/17 20:59 (Narcan Inj) 0.4 mg UNSCH PRN IV 01/04/17 21:00 01/05/17 20:59 (Benadryl Inj) 25 mg Q6H PRN IV PUSH 01/04/17 21:00 01/05/17 20:59 (Benadryl) 50 mg Q6H PRN PO 01/04/17 21:00 01/05/17 20:59 Miscellaneous Information ALL NURSING DEPARTMENTS UNSCH PRN .XX 01/04/17 21:00 01/05/17 20:59 (Dyloject Inj) 37.5 mg Q8H IV PUSH 01/05/17 05:00 01/05/17 13:01 01/05/17 04:26 Assessment/Plan Problem List: (1) AMA (advanced maternal age) multigravida 35+ (2) Fibroid (3) Glucose tolerance decreased (4) Bartholin cyst (5) Rubella non-immune status, antepartum Assessment and Plan POD#1, stable, advance care ,plan discharge POD 2 or 3 Discharge Planning routine Jian Franco MD Jan 05, 2017 08:17
[2017-01-05 08:30] VITALS: BP 103/61; PULSE 81; RESP 16; TEMP 97.9
[2017-01-05] MEDS ORDERED: SODIUM CHLORIDE 0.9% FLUSH 10 ML FLUSH IV FLUSH SCH (09:00)
[2017-01-05] MEDS ORDERED: MEASLES, MUMPS, RUBELLA VACCINE 0.5 ML VIAL SQ ONE (16:00)
[2017-01-05] MEDS ORDERED: DIPHTH/TETANUS/ACEL PERTUSSIS (BOOSTER) 0.5 ML VIAL/PFS IM ONE (16:00)
[2017-01-05 16:20] VITALS: BP 93/48; PULSE 81; RESP 16; TEMP 97.9
[2017-01-05] MEDS: SIMETHICONE 80 MG CHEWABLE TAB PO PRN (19:28)
[2017-01-05 20:00] VITALS: BP 107/46; PULSE 80; RESP 20; TEMP 98.1
[2017-01-05] MEDS: IBUPROFEN 600 MG TAB PO PRN (22:41)
[2017-01-06] VITALS: BP 112/50; PULSE 18; PULSE 64; RESP 20; TEMP 98.3
[2017-01-06] MEDS: SIMETHICONE 80 MG CHEWABLE TAB PO PRN (05:05)
[2017-01-06] MEDS: IBUPROFEN 600 MG TAB PO PRN (09:09)
[2017-01-06 09:20] VITALS: BP 107/42; PULSE 72; RESP 20; TEMP 98
--- NOTE | 2017-01-06 10:49 | HHI.OB ---
Subjective Post Operative Day: 2 Remarks POD#2, Doing well, desires discharge home Objective Vitals/I&O Vital Signs Date Time Temp Pulse Resp B/P Pulse Ox O2 Delivery O2 Flow Rate FiO2 01/06/17 09:20 98.0 72 20 107/42 01/06/17 00:00 18 01/06/17 00:00 64 112/50 01/06/17 00:00 98.3 20 01/05/17 20:00 98.1 80 20 107/46 01/05/17 16:20 97.9 01/05/17 16:20 81 16 93/48 Result Diagram: 01/05/17 0538 Objective Remarks GENERAL: Well-nourished, well-developed patient. CARDIOVASCULAR: Regular rate and rhythm without murmurs, gallops, or rubs. RESPIRATORY: Breath sounds equal bilaterally. No accessory muscle use. ABDOMEN/GI: Abdomen soft, non-tender, bowel sounds present. Incision: Clean, dry and intact. Fundus: Firm, non-tender at umbilicus. GENITOURINARY: Light to moderate bleeding. EXTREMITIES: No cyanosis or edema, non-tender, without signs of DVT. Medications and IVs Current Medications Medications (Trade) Dose Ordered Sig/Bharat Route Start Time Stop Time Status Last Admin (NS Flush) 2 ml BID IV FLUSH 01/05/17 09:00 (NS Flush) 2 ml UNSCH PRN IV FLUSH 01/04/17 22:15 (Mylicon Chew) 80 mg QID PRN PO 01/04/17 22:15 01/06/17 05:05 (Tylenol) 650 mg Q6H PRN PO 01/04/17 22:15 (Motrin) 600 mg Q6H PRN PO 01/04/17 22:15 01/06/17 09:09 (Percocet 5-325 Mg) 1 tab Q4H PRN PO 01/04/17 22:15 01/06/17 09:09 (Percocet 5-325 Mg) 2 tab Q4H PRN PO 01/04/17 22:15 01/06/17 05:05 (Linnette-Colace) 2 tab Q12H PRN PO 01/04/17 22:15 01/06/17 09:08 (Ambien) 5 mg HS PRN PO 01/04/17 22:15 (Zofran Inj) 4 mg Q6H PRN IV PUSH 01/04/17 22:15 Assessment/Plan Problem List: (1) AMA (advanced maternal age) multigravida 35+ (2) Fibroid (3) Glucose tolerance decreased (4) Bartholin cyst (5) Rubella non-immune status, antepartum Assessment and Plan POD#2 : Is stable for discharge home Discharge Planning routine Attending Attestation seen by Jian Fox MD Jan 06, 2017 10:49
[2017-01-06] MEDS ORDERED: IBUP-232 PO (10:50)
[2017-01-06] MEDS ORDERED: OXYC1TAB63 PO (10:50)
--- NOTE | 2017-01-06 10:50 | HHI.DS ---
Admission Date Jan 03, 2017 at 18:11 Admitting Diagnosis Diagnosis: : Primary : Male Brief History 41 yo with iup at 39 wk. She was seen in clinic for meagan visit. + FM, neg vb/lof, ctx. She had a growth u/s at 35 wk that noted a 7 lb 7oz baby. She does have h/o macrosomia. She desires iol. Pt Condition on Discharge: Good Discharge Disposition: Discharge Home Discharge Instructions Diet Instructions: As Tolerated, No Restrictions Activities You Can Perform: Shower Only-No Bath Activities to Avoid: Prolonged Standing, Strenuous Activity, Driving, Sexual Activity Jian Franco MD Jan 06, 2017 10:50
--- NOTE | 2017-01-08 14:47 | MP ---
cc: ADA COLÓN MD DATE OF SURGERY 01/04/2017 PREOPERATIVE DIAGNOSIS 1. Intrauterine at 39 weeks 2. Suspected macrosomia. 3. Arrest of labor 4. Advanced maternal age 5. Fibroid uterus. 6. Rubella not immune 7. Bartholin's cyst. POSTOPERATIVE DIAGNOSIS 1. Intrauterine at 39 weeks 2. Suspected macrosomia. 3. Arrest of labor 4. Advanced maternal age 5. Fibroid uterus. 6. Rubella not immune 7. Bartholin's cyst. PROCEDURE PERFORMED 1. Primary low transverse section. 2. Collection of cord blood and cord segment for banking INDICATION The patient is a 41-year old G4, P 1-0-2-1 with an IUP at 39 weeks and 1 day who was admitted yesterday for induction of labor for suspected macrosomia. Estimated weight was predicted to be 9.5 pounds. She has a proven pelvis to 9 pounds 5 ounces with a previous . She was induced with Cervidil which was removed before 12 hours due to contractions and she was 5 cm dilated. She underwent amniotomy and Pitocin induction achieving complete dilation and effacement and was -1 station. She did have a pushing trial for over an hour and a half with her nurse. Baby developed significant molding and caput and she had turtle sign with pushing; she descended +1 station and regressed to -1 station at rest. The risks of the shoulder dystocia and likely cephalopelvic disproportion were discussed with the patient and her family. Discussed with the safest next step would be to proceed with delivery. Risks were discussed. The patient and family were in agreement with the plan of care. Consents were previously signed and on chart. SURGEON Rosalino Colón MD TRAY CHECKER [place] staff ESTIMATED BLOOD LOSS 800 mL URINE OUTPUT 200 Ml of clear urine at the end of the case. IV FLUIDS 2 liters of lactated Ringer's. SPECIMEN Cord blood, placenta for donation. COMPLICATIONS Poor uterine tone, improved with Hemabate x one. INTRAOPERATIVE FINDINGS Viable male infant. weight of 9 pounds 14 ounces, Apgars pending. Presentation left occiput transverse. Copious amniotic fluid clear. Maternal anatomy - normal tubes bilaterally, small ovaries bilaterally. A 4.5 cm pedunculated fibroid on the left fundal anterior aspect of the uterus that had adhesions to the omentum and the lower uterine segment. PROPHYLAXIS DVT prophylaxis, SCDs to lower extremities, prophylactic antibiotics Ancef 2 grams IV given pre-incision DISPOSITION Stable to PACU. She is an acceptable candidate for a PROCEDURE IN DETAIL After informed consent, the patient was taken to the operating room where epidural was redosed and found to be adequate. Nunez was already in place. The abdomen was prepped and draped in normal sterile fashion. A Pfannenstiel skin incision was made with a scalpel, carried down to underlying layer of fascia with the Bovie. The fascia was incised in the midline. This incision was extended bilaterally with Diop scissors. The Kun clamps were placed on the anterior aspect of the fascia. The rectus muscles were dissected off bluntly and with Diop scissors. The same was repeated inferiorly. The rectus muscles were bluntly. The peritoneum was entered sharply after tenting. This incision was extended bluntly. The bladder blade was placed with good visualization of the lower uterine segment. The bladder flap was created with Metzenbaum scissors and further developed digitally. An incision was made with a scalpel and extended bluntly. The head was noted to have significant molding. The head was flexed and elevated from the pelvis to the level of the hysterotomy. Gentle fundal pressure was used to deliver the infant. The was rest of the body readily followed. Delayed cord clamping was performed. The baby was handed off to awaiting pediatricians. IV infusion of Pitocin was started immediately after delivery of the infant. Cord blood was collected for banking, cord segment was collected for banking as well. The placenta was delivered with gentle uterine massage and cord traction. The uterus was exteriorized and was cleared of any debris and clots with moistened laparotomy sponges. The posterior aspect of the uterus was noted to have a pumping bleeding vessel. A cynghb-ig-kiwfb with 2-0 chromic was used to ensure hemostasis. The uterus was then noted to have decreased tone. Hemabate x1 was given with improved tone. The uterus was repaired in two layers with #1 chromic in a running locked fashion followed by an imbricating layer. The left angle of the uterus was noted to have an oozing of blood. A tlaicb-ha-zivav with 2-0 chromic was placed which ensured hemostasis. The fibroid was then inspected and noted to have an adhesive band of omentum and a band to the lower uterine segment. This was double clamped, cut and suture ligated and another small omental band to the fibroid was also double ligated, cut and suture ligated. The uterus was then returned to the abdomen. Good hemostasis was noted at the hysterotomy. Irrigation was performed. The peritoneum was closed with 2-0 chromic in a running fashion. The fascia was closed with #1 Vicryl in a running fashion. The subcutaneous tissue was irrigated and hemostasis was obtained with the Bovie. The subcutaneous tissue was closed with 2-0 chromic in a running fashion. The skin was closed with 3-0 Monocryl in a running fashion. Steri-Strips and a sterile dressing were then placed. The patient was taken to PACU in stable condition. Ada Colón MD PE/ /10:02 PM /2:41 PM MTDD
== END 2017-01-06 14:47 | disposition home or self-care (01) | DRG 766 ==
LOC: H2EB 18:11 → H1EA 01-04 23:27
PROVIDERS: ADMIT Obstetrics & Gynecology; ATTEND Obstetrics & Gynecology
PROC: 10D00Z1 Extraction of Products of Conception, Low, Open Approach (ICD-10-PCS; principal; 2017-01-04)
PROC: 3E0P7GC Introduction of Other Therapeutic Substance into Female Reproductive, Via Natural or Artificial Opening (ICD-10-PCS; 2017-01-04)
PROC: 10907ZC Drainage of Amniotic Fluid, Therapeutic from Products of Conception, Via Natural or Artificial Opening (ICD-10-PCS; 2017-01-04)
PROC: 00HU33Z Insertion of Infusion Device into Spinal Canal, Percutaneous Approach (ICD-10-PCS; 2017-01-04)
PROC: 3E0R3CZ (ICD-10-PCS; 2017-01-04)
PROC: 00HU33Z Insertion of Infusion Device into Spinal Canal, Percutaneous Approach (ICD-10-PCS; 2017-01-04)
PROC: 3E0R3CZ (ICD-10-PCS; 2017-01-04)
DX: O34.13 Maternal care for benign tumor of corpus uteri, third trimester (principal); N75.0 Cyst of Bartholin's gland; O09.513 Supervision of elderly primigravida, third trimester; Z3A.39 39 weeks gestation of pregnancy; O62.1 Secondary uterine inertia; O32.9XX0 Maternal care for malpresentation of fetus, unspecified, not applicable or unspecified; Z37.0 Single live birth
CPT/HCPCS: 59025; 81001; 85025; 86850; 86900; 86901; 90707; J0131; J1130; J2274; J2405; J2590; J7120

== ENCOUNTER 2017-01-15 03:04 | Inpatient (IN) | payer OTHER ==
[2017-01-15] VITALS (97 sets, daily range): BP systolic 83–140; BP diastolic 37–75; PULSE 65–128; RESP 16–18; TEMP 97.8–99.2; O2SAT 96–100
[~2017-01-15 03:04] MED LIST changes: -CEPH500C3 PO; +IBUP-232 PO; +OXYC1TAB63 PO
[2017-01-15] MEDS ORDERED: SODIUM CHLORIDE 0.9% FLUSH 10 ML FLUSH IV FLUSH PRN (03:30)
[2017-01-15] MEDS ORDERED: IOHEXOL 350 MG/ML 10 ML VIAL (for RAD DIAG) IV ONE (04:12)
[2017-01-15 04:15] LABS: BASOPHIL # 0.1 TH/MM3 (0-0.2); BASOPHIL % 0.7 % (0.0-2.0); EOSINOPHIL # 0.5 TH/MM3 (0-0.4); EOSINOPHIL % 4.4 % (0.0-4.0); HEMATOCRIT 33.9 % (35.0-46.0); HEMO FLAGS DIFF FINAL; LYMPH % 30.9 % (9.0-44.0); LYMPHOCYTE # 3.2 TH/MM3 (1.0-4.8); MEAN CELL VOLUME 83.4 FL (80.0-100.0); MEAN CORPUSCULAR HEMOGLOBIN 28.3 PG (27.0-34.0); MEAN CORPUSCULAR HGB CONC 33.9 % (32.0-36.0); MONO % 6.4 % (0.0-8.0); NEUT % 57.6 % (16.0-70.0); PLATELET COUNT 569 TH/MM3 (150-450); RED BLOOD COUNT 4.06 MIL/MM3 (4.00-5.30); WHITE BLOOD COUNT 10.4 TH/MM3 (4.0-11.0)
--- NOTE | 2017-01-15 04:30 | RADRPT ---
EXAM DATE/TIME: 01/15/2017 04:12 [facility] COMPARISON: No previous studies available for comparison. INDICATIONS : Vaginal bleeding. section on 01/04. IV CONTRAST: 100 cc Omnipaque 350 (iohexol) IV ORAL CONTRAST: No oral contrast ingested. RADIATION DOSE: 12.51 CTDIvol (mGy) MEDICAL HISTORY : Asthma. SURGICAL HISTORY : section. ENCOUNTER: Initial ACUITY: 1 day PAIN SCALE: 2/10 LOCATION: Bilateral lower quadrant TECHNIQUE: Volumetric scanning of the abdomen and pelvis was performed. Using automated exposure control and ad justment of the mA and/or kV according to patient size, radiation dose was kept as low as reasonably achievable to obtain optimal diagnostic quality images. FINDINGS: LOWER LUNGS: Small granuloma in left lung base. Right lung base clear. LIVER: Homogeneous density without lesion. There is no dilation of the biliary tree. No calcified gallston es. SPLEEN: Normal size without lesion. PANCREAS: Within normal limits. KIDNEYS: Normal in size and shape. There is no mass, stone or hydronephrosis. ADRENAL GLANDS: Within normal limits. VASCULAR: There is no aortic aneurysm. BOWEL/MESENTERY: The stomach, small bowel, and colon demonstrate no acute abnormality. There is no free intraperitone al air or fluid. ABDOMINAL WALL: Post surgical changes. Otherwise unremarkable. RETROPERITONEUM: There is no lymphadenopathy. BLADDER: No wall thickening or mass. REPRODUCTIVE: The uterus is prominent characteristic of a uterus. There is a small amount of air in the endometrial cavity consist with recent . No free fluid is seen in the cul-de-sac. No loculat ed fluid collections are seen. There is a 2 cm left ovarian cyst. INGUINAL: There is no lymphadenopathy or hernia. MUSCULOSKELETAL: Within normal limits for patient age. CONCLUSION: 1. Prominent uterus characteristic of recent . 2. 2 cm left ovarian cyst 3. Small granuloma left lung base. Alok Ji MD on January 15, 2017 at 4:24 Board Certified Radiologist. This report was verified electronically.
[2017-01-15 04:39] LABS: BICARBONATE 27.1 MEQ/L (21.0-32.0); POTASSIUM 3.8 MEQ/L (3.5-5.1)
[2017-01-15 04:43] LABS: BLOOD, URINE LARGE (NEG); COMMENT (UR) CULTURE INDICATED; CULTURE IF INDICATED CULTURE INDICATED; GLUCOSE,URINE NEG (NEG); KETONE, URINE NEG (NEG); MUCUS URINE FEW /lpf (OCC); NITRITE,URINE NEG (NEG)
[2017-01-15 04:44] LABS: URINE COLOR LIGHT-RED (YELLW/STRAW)
--- NOTE | 2017-01-15 05:16 | PD ---
HPI Chief Complaint: Bleeding Time Seen by Provider: 03:29 Travel History International Travel<30 days: No Contact w/Intl Traveler<30days: No Traveled to known affect area: No History of Present Illness HPI The patient's 41 years old. She is 3 para 2 (one prior ) who underwent section fortunately 7 days prior performed by Dr. Colón. Last night at about 7 PM she had a sudden onset of vaginal bleeding enough to saturate one pad. About 6 hours later a second episode of vaginal bleeding occurred causing another essentially immediate saturation of a pad. She was advised to come to the ER. Here she has no abdominal pain or symptoms consistent with acute anemia. Location genitourinary/obstetrics. Severity moderate. Timing intermittent. PFSH Past Medical History Medical History: Denies Significant Hx Respiratory: Yes (hx asthma) ?: Not Past Surgical History Section: Yes Other Surgery: Yes (cyst on breast as a child+) Social History Alcohol Use: No Tobacco Use: No Substance Use: No Allergies-Medications (Allergen,Severity, Reaction): Uncoded Allergies: BART (Allergy, Unknown, 12/28/14) Reported Meds & Prescriptions Reported Meds & Active Scripts Active Oxycodone-Acetaminophen 5-325 mg Tab 1 Tab PO Q4H PRN Ibuprofen 600 Mg Tab 600 Mg PO Q6H PRN Motrin 600 Mg Tab (Ibuprofen) 600 Mg Tab 600 Mg PO Q6H PRN Reported 1 ( Multivitamins) Cap 1 Cap PO DAILY Review of Systems Except as stated in HPI: all other systems reviewed are Neg General / Constitutional: No: Fever Genitourinary: Positive: Vaginal Bleeding Physical Exam Narrative GENERAL: 41-year-old female well-nourished well-developed acute distress GENITOURINARY: Copious bright red and dark red blood in the vaginal vault. Minimal CMT. SKIN: Focused skin assessment warm/dry. HEAD: Atraumatic. Normocephalic. EYES: Pupils equal and round. No scleral icterus. No injection or drainage. ENT: No nasal bleeding or discharge. Mucous membranes pink and moist. NECK: Trachea midline. No JVD. CARDIOVASCULAR: Regular rate and rhythm. No murmur appreciated. RESPIRATORY: No accessory muscle use. Clear to auscultation. Breath sounds equal bilaterally. GASTROINTESTINAL: Soft. No focal tenderness. MUSCULOSKELETAL: No obvious deformities. No clubbing. No cyanosis. No edema. NEUROLOGICAL: Awake and alert. No obvious cranial nerve deficits. Motor grossly within normal limits. Normal speech. PSYCHIATRIC: Appropriate mood and affect; insight and judgment normal. Data Data Last Documented VS Vital Signs Date Time Temp Pulse Resp B/P Pulse Ox O2 Delivery O2 Flow Rate FiO2 01/15/17 03:05 97.8 83 16 127/58 99 Vital signs reviewed Orders Basic Metabolic Panel (Bmp) (01/15/17 03:30) Complete Blood Count With Diff (01/15/17 03:30) Urinalysis - C+S If Indicated (01/15/17 03:30) Iv Access Insert/Monitor (01/15/17 03:30) Ecg Monitoring (01/15/17 03:30) Oximetry (01/15/17 03:30) Sodium Chloride 0.9% Flush (Ns Flush) (01/15/17 03:30) Type And Screen (01/15/17 03:30) Ct Abd/Pel W Iv Contrast(Rout) (01/15/17 03:45) Iohexol 350 Inj (Omnipaque 350 Inj) (01/15/17 04:12) Urine Culture (01/15/17 03:49) Admit Order (Ed Use Only) (01/15/17 05:20) Labs Laboratory Tests Test 01/15/17 03:49 White Blood Count 10.4 TH/MM3 Red Blood Count 4.06 MIL/MM3 Hemoglobin 11.5 GM/DL Hematocrit 33.9 % Mean Corpuscular Volume 83.4 FL Mean Corpuscular Hemoglobin 28.3 PG Mean Corpuscular Hemoglobin 33.9 % Concent Red Cell Distribution Width 15.0 % Platelet Count 569 TH/MM3 Mean Platelet Volume 7.0 FL Neutrophils (%) (Auto) 57.6 % Lymphocytes (%) (Auto) 30.9 % Monocytes (%) (Auto) 6.4 % Eosinophils (%) (Auto) 4.4 % Basophils (%) (Auto) 0.7 % Neutrophils # (Auto) 6.0 TH/MM3 Lymphocytes # (Auto) 3.2 TH/MM3 Monocytes # (Auto) 0.7 TH/MM3 Eosinophils # (Auto) 0.5 TH/MM3 Basophils # (Auto) 0.1 TH/MM3 CBC Comment DIFF FINAL Differential Comment Urine Color LIGHT-RED Urine Turbidity CLEAR Urine pH 5.0 Urine Specific [place] 1.020 Urine Protein TRACE mg/dL Urine Glucose (UA) NEG mg/dL Urine Ketones NEG mg/dL Urine Occult Blood LARGE Urine Nitrite NEG Urine Bilirubin NEG Urine Urobilinogen LESS THAN 2.0 MG/DL Urine Leukocyte Esterase MOD Urine RBC /hpf Urine WBC 9 /hpf Urine Mucus FEW /lpf Microscopic Urinalysis Comment CULTURE INDICATED Sodium Level 139 MEQ/L Potassium Level 3.8 MEQ/L Chloride Level 103 MEQ/L Carbon Dioxide Level 27.1 MEQ/L Anion Gap 9 MEQ/L Blood Urea Nitrogen 20 MG/DL Creatinine 0.99 MG/DL Estimat Glomerular Filtration 62 ML/MIN Rate Random Glucose 93 MG/DL Calcium Level 9.1 MG/DL Blood Type O POSITIVE Antibody Screen NEGATIVE MDM Medical Decision Making Medical Screen Exam Complete: Yes Emergency Medical Condition: Yes Medical Record Reviewed: Yes Differential Diagnosis Anemia, vaginal bleeding postoperatively, involution Narrative Course CBC & BMP Diagram 01/15/17 03:49 Urinalysis reveals hematuria Last 24 hours Impressions Abdomen/Pelvis CT 01/15/17 0345 Signed Impressions: Service Date/Time: Sunday, January 15, 2017 04:12 - CONCLUSION: 1. Prominent uterus characteristic of recent . 2. 2 cm left ovarian cyst 3. Small granuloma left lung base. Alok Ji MD Case d/w ob hospitalist, Dr Newman, who advises 23 obs with admission to post- floor. I was called to the bedside at about 6:40 AM. The patient developed chest tightness and her heart rate decreased to about 42. She also felt somewhat dizzy and nauseated. IV fluids were initiated, 1 liter normal saline. Zofran was given. Given symptomatic bradycardia atropine 0.1 mg was given and the patient had a brisk recovery with a heart rate increasing to about 90 and subjective improvement reported. In the interim after admission and the patient very stated complaints the patient had a few episodes of vaginal bleeding profuse. A second IV was placed and 2 units of packed cells were ordered at the request of Dr. Newman, who came down to evaluate the patient at about 6:50 AM. Critical Care Narrative Aggregate critical care time was 35 minutes. Time to perform other separately billable procedures was not included in the critical care time. My time did not include minutes spent treating any other patients simultaneously or on activities that did not directly contribute to the patient's treatment. The services I provided to this patient were to treat and/or prevent clinically significant deterioration that could result in: Cardiopulmonary arrest, hemorrhagic shock I provided critical care services requiring my management, as noted below: Chart data review, documentation time, medication orders and management, vital sign assessments/reviewing monitor data, ordering and reviewing lab tests, ordering and interpreting/reviewing x-rays and diagnostic studies, care of the patient and discussion of the patient with the admitting physicians. Diagnosis Primary Impression: Vaginal bleeding Admitting Information Admitting Physician Requests: Observation Guancao Conroy MD Jan 15, 2017 05:16
[2017-01-15] MEDS ORDERED: METHYLERGONOVINE MALEATE 0.2 MG/ML VIAL IM ONE ×2 (06:30)
[2017-01-15] MEDS ORDERED: ONDANSETRON HCL 4 MG/2 ML VIAL ONE (06:35)
[2017-01-15] MEDS ORDERED: ATROPINE SULFATE 1 MG/10 ML SYRINGE ONE (06:37)
[2017-01-15] MEDS ORDERED: SODIUM CHLOR 0.9% 1000 ML INJ 1,000 ML IV ONE (06:45)
[2017-01-15] MEDS ORDERED: HYDROmorphone HCL PF 1 MG/ML VIAL IV PUSH ONE (07:00)
[2017-01-15] MEDS ORDERED: ATROPINE SULFATE 0.4 MG/ML VIAL IV PUSH ONE (07:00)
[2017-01-15] MEDS ORDERED: SODIUM CHLOR 0.9% 250 ML INJ 250 ML IV ONE (07:15)
[2017-01-15] MEDS ORDERED: diphenhydrAMINE HCL 50 MG/ML VIAL IV PUSH ONE (07:15)
[2017-01-15] MEDS ORDERED: ACETAMINOPHEN 325 MG TAB PO ONE (07:15)
[2017-01-15] MEDS ORDERED: MISOPROSTOL 200 MCG TAB ONE (07:26)
[2017-01-15 07:34] LABS: HEMATOCRIT 26.4 % (35.0-46.0); MEAN CELL VOLUME 83.8 FL (80.0-100.0); MEAN CORPUSCULAR HGB CONC 33.4 % (32.0-36.0); PLATELET COUNT 589 TH/MM3 (150-450); RED BLOOD COUNT 3.15 MIL/MM3 (4.00-5.30); RED CELL DISTRIBUTION WIDTH 14.8 % (11.6-17.2); REVIEW FLAG FINAL; WHITE BLOOD COUNT 11.7 TH/MM3 (4.0-11.0)
[2017-01-15 07:44] LABS: APTT (PATIENT) 23.3 SEC (24.3-30.1); PROTHROMBIN TIME - PATIENT 11.1 SEC (9.8-11.6)
[2017-01-15] MEDS ORDERED: fentaNYL CITRATE 250 MCG/5 ML AMP ONE (07:44)
[2017-01-15] MEDS ORDERED: OXYTOCIN 10 UNIT/ML AMP IV ONE (08:15)
[2017-01-15] MEDS ORDERED: ceFAZolin 2 GM PREMIX 50 ML ONE (08:26)
[2017-01-15 08:29] LABS: HEMATOCRIT 26.8 % (35.0-46.0); REVIEW FLAG FINAL
--- NOTE | 2017-01-15 08:48 | PD.CONS ---
History & Physical H&P ER Consultation: Mrs. Oneill is a 41-year-old 4 para 2 who is 7 days postop from a primary after failure to progress at 39 weeks. The section performed by Dr. Colón, and was uncomplicated. Her immediate postoperative course had been uncomplicated. The Patient presented to the ER at approximately 3:30 this morning reporting that she had saturated pad at about 7 PM. She then saturated a second pad and was told to come in for evaluation. The patient's vitals were stable, her hemoglobin was 11.5, her remaining labs were WNL. She had no abdominal pain other than mild cramping. She was alert and ambulating as needing to void. A CT scan had been obtained by Dr. Conroy, which was essentially normal with normal postoperative changes. A call was received from Dr. Conroy after he performed a speculum exam and noted that her bleeding had slightly increased but was very stable. Given that she was 7 days like this was likely subinvolution of the uterus. We agreed to have her admitted for 24 observation and Methergine. For subinvolution and bleeding, she would be transferred to the unit and I would meet the patient there to initiate Methergine as medical therapy for subinvolution. Dr. Conroy agreed with this plan. Dr. Ritter was contacted as the covering physician for Dr. Colón and agreed with this plan of care. While awaiting bed placement the patient's bleeding rapidly increased with an enlarging uterus. Methergine was taken to the ER from L&D and the Patient was given a single IM injection of Methergine with minimal results. The patient blood pressure began to decrease she had become a cardiac and was given atropine as well as Zofran for nausea. I presented to the ER with 2 L&D RNs with a second dose of Methergine. A Nunez catheter was then placed noting about 600 cc of clear urine. I extracted multiple clots manually. The uterine fundus initially was U-1 and came down to U-4. The patient had been typed and crossed, and I ordered 2 units to be initiated. A total of approximately 500 cc of bleeding was noted while I was in the ER. The ER nurse estimated at least 1000 ml prior to this. . Patient was then given 1000 mcg of Cytotec per rectum, the bleeding significantly slowed down after clots were again extracted , but there discontinue be a slight trickle of blood. She had 2 large bore IVs and once the packed red blood cells was initiated, she continued to become more alert and her BP increased. Her pulse was stable at about 110 she continued to have urine output. She became more responsive and her color improved. The OR had been notified as well as Dr. Ritter who was covering for Dr. Colón. She was then taken to the OR where Dr. Hunt and Dr. Ritter met us and care was handed over to proceed with a D&C. The patient and her had been counseled on D&C as well as hysterectomy as well as further blood transfusion. 2 more units of packed red blood cells were requested. A hemoglobin and DIC panel had been obtained in the ER. Adriana Newman MD Jan 15, 2017 08:48
[2017-01-15] MEDS ORDERED: LACTATED RINGER'S 1000 ML INJ 1,000 ML IV SCH ×2 (08:52)
[2017-01-15] MEDS ORDERED: DO NOT ADM ANY ANTICOAGULANT DRUGS PRN (08:58)
[2017-01-15] MEDS ORDERED: SIMETHICONE 80 MG CHEWABLE TAB PO PRN (09:00)
[2017-01-15] MEDS ORDERED: OXYTOCIN 30 UNITS-500ML PREMIX 500 ML IV ONE (09:00)
[2017-01-15] MEDS ORDERED: DOCUSATE SODIUM 50 MG/SENNA 8.6 MG TAB PO PRN (09:00)
[2017-01-15] MEDS ORDERED: oxyCODONE/ACETAMINOPHEN 5 MG/325 MG TAB PO PRN ×2 (09:00)
[2017-01-15] MEDS ORDERED: ONDANSETRON HCL 4 MG/2 ML VIAL IV PUSH PRN (09:00)
[2017-01-15] MEDS ORDERED: ACETAMINOPHEN 1000 MG/100 ML VIAL IV ONE (09:45)
[2017-01-15] MEDS ORDERED: MORPHINE SULFATE 4 MG/ML INJ IV PUSH PRN (10:45)
[2017-01-15 12:37] LABS: AUTOMATED NEUTROPHIL # 13.4 TH/MM3 (1.8-7.7); BASOPHIL % 0.2 % (0.0-2.0); EOSINOPHIL % 0.1 % (0.0-4.0); HEMATOCRIT 27.9 % (35.0-46.0); HEMO FLAGS DIFF FINAL; LYMPH % 7.7 % (9.0-44.0); LYMPHOCYTE # 1.1 TH/MM3 (1.0-4.8); MEAN CELL VOLUME 85.9 FL (80.0-100.0); MEAN CORPUSCULAR HEMOGLOBIN 27.6 PG (27.0-34.0); MEAN CORPUSCULAR HGB CONC 32.1 % (32.0-36.0); MONO % 1.1 % (0.0-8.0); NEUT % 90.9 % (16.0-70.0); PLATELET COUNT 410 TH/MM3 (150-450); RED BLOOD COUNT 3.25 MIL/MM3 (4.00-5.30); RED CELL DISTRIBUTION WIDTH 15.1 % (11.6-17.2); WHITE BLOOD COUNT 14.7 TH/MM3 (4.0-11.0)
[2017-01-15] MEDS ORDERED: NEOSTIGMINE 3 MG/3 ML SYR IV ONE (12:58)
[2017-01-15] MEDS ORDERED: PROPOFOL 200 MG/20 ML AMP IV ONE (12:58)
[2017-01-15] MEDS ORDERED: ePHEDrine/NS 25 MG/5 ML SYR IV ONE (12:58)
[2017-01-15] MEDS ORDERED: PHENYLEPH/NS 1000 MCG/10 ML SYR IV ONE (12:58)
[2017-01-15] MEDS ORDERED: LACTATED RINGER'S 1000 ML INJ 1,000 ML IV ONE (12:59)
[2017-01-15] MEDS ORDERED: ONDANSETRON HCL 4 MG/2 ML VIAL IV PUSH ONE (12:59)
[2017-01-15] MEDS ORDERED: ACETAMINOPHEN 1000 MG/100 ML VIAL IV SCH (13:00)
--- NOTE | 2017-01-15 13:16 | HHI.PR ---
BOX LOADER Note Note S: pt c/o low back pain, pressure in low pelvis, declines oral pain medication at this time, afraid of nausea SE; pain 3/10 low pelvis/back; denies SOB, chest pain, dizziness, nausea. cruz catheter & Bakri balloon in place. O: AF VSS, normotensive and Hgb stable at 9.0 groggy but responds & holds conversation CTA b/l no wheeze RRR no murmur Abd: NTND +BS, umbilicus palpable at U-4; firm : minimal blood on pad, bad attached to Bakri is empty; cruz has good output , clear Ext: SCDs in place; no C/C/E x 4 A/P: 41 yo admit POD#7 for delayed PPH, now POD#0 s/p EUA, D&C, Bakri balloon placement 1) delayed PPH: pt lost approx 2L between home/ER/OR; received 1unit PRBCs btw ER & OR; Hgb & vitals stable currently, 2 additional units ordered but no addt' l units to be transfused at this time based on clinical picture; continue w/ frequent vitals & check addt'l Hgb at 6pm; ok to advance diet to soft at this time; keep Bakri & cruz in overnight, continue methergine tid 2) : infant at home, pt , electric breastpump ordered to bedside, will pump & store once feeling up to it 3) dispo: not meeting d/c criteria; if able to eat & tolerate oral meds then ok to transfer to PP floor later this evening; will see how pt does after removal of Bakri/cruz Tara Cruz AM, MD Jan 15, 2017 13:16
[2017-01-15] MEDS: METHYLERGONOVINE MALEATE 0.2 MG TAB PO SCH ×2 (13:49→22:09)
--- NOTE | 2017-01-15 14:26 | EKG ---
Date Performed: 01/15/2017 Time Performed: 06:40:23 PTAGE: 41 years EKG: SINUS TACHYCARDIA POSSIBLE LEFT ATRIAL ENLARGEMENT ABNORMAL RHYTHM ECG NO PREVIOUS TRACING DOCTOR: Mauri Adams Interpretating Date/Time 01/15/2017 14:22:42
[2017-01-15] MEDS: LACTATED RINGER'S 1000 ML INJ 1,000 ML IV SCH (19:31)
[2017-01-15 19:51] LABS: AUTOMATED NEUTROPHIL # 14.8 TH/MM3 (1.8-7.7); BASOPHIL % 0.1 % (0.0-2.0); EOSINOPHIL % 0.1 % (0.0-4.0); HEMATOCRIT 23.1 % (35.0-46.0); HEMO FLAGS DIFF FINAL; LYMPH % 10.1 % (9.0-44.0); LYMPHOCYTE # 1.8 TH/MM3 (1.0-4.8); MEAN CELL VOLUME 84.9 FL (80.0-100.0); MEAN CORPUSCULAR HEMOGLOBIN 29.2 PG (27.0-34.0); MEAN CORPUSCULAR HGB CONC 34.4 % (32.0-36.0); MONO % 4.3 % (0.0-8.0); NEUT % 85.4 % (16.0-70.0); PLATELET COUNT 403 TH/MM3 (150-450); RED BLOOD COUNT 2.72 MIL/MM3 (4.00-5.30); RED CELL DISTRIBUTION WIDTH 14.8 % (11.6-17.2); WHITE BLOOD COUNT 17.4 TH/MM3 (4.0-11.0)
[2017-01-15] MEDS: ACETAMINOPHEN 1000 MG/100 ML VIAL IV SCH (22:10)
[2017-01-16] VITALS (10 sets, daily range): BP systolic 112–140; BP diastolic 41–62; PULSE 78–101; RESP 18–26; TEMP 99.1–99.9; O2SAT 96–99
[2017-01-16] MEDS: METHYLERGONOVINE MALEATE 0.2 MG TAB PO SCH ×3 (05:36→22:08)
[2017-01-16] MEDS: LACTATED RINGER'S 1000 ML INJ 1,000 ML IV SCH (05:37)
[2017-01-16] MEDS: ACETAMINOPHEN 1000 MG/100 ML VIAL IV SCH ×2 (05:37→15:26)
[2017-01-16 06:19] LABS: HEMATOCRIT 21.5 % (35.0-46.0); REVIEW FLAG FINAL
--- NOTE | 2017-01-16 08:01 | PD.OP ---
Operative Report Date of Surgery: Jan 15, 2017 Preoperative Diagnosis: delayed post hemorrhage (one week post section) Postoperative Diagnosis: same, addressed Procedure: Evacuation of clots, currettage with banjo and placement of Bakri balloon Anesthesia: GET Surgeon: Lizbet Hunt Photostat Operator Helper(s): Evelyn Operation and Findings: moderate clot in sub involuted uterus unremarkable Bakri placement and stable at end of procedure Lizbet Hunt MD Jan 16, 2017 08:01
--- NOTE | 2017-01-16 08:25 | HHI.OB ---
Subjective Post Operative Day: 1 Remarks pt feeling weak, still tired. Objective Vitals/I&O Vital Signs Date Time Temp Pulse Resp B/P Pulse Ox O2 Delivery O2 Flow Rate FiO2 01/16/17 06:00 78 18 123/53 01/16/17 06:00 99.4 01/16/17 02:00 99.3 88 18 140/50 01/15/17 20:00 99.2 87 18 01/15/17 20:00 124/43 01/15/17 17:30 98.6 81 18 118/58 01/15/17 16:25 83 98 01/15/17 16:20 85 98 01/15/17 16:15 76 97 01/15/17 16:10 83 98 01/15/17 16:05 79 97 01/15/17 16:01 76 121/53 01/15/17 16:00 76 97 01/15/17 16:00 16 01/15/17 15:55 77 96 01/15/17 15:50 77 96 01/15/17 15:45 84 97 01/15/17 15:40 88 97 01/15/17 15:35 76 100 01/15/17 15:31 76 130/47 01/15/17 15:30 73 100 01/15/17 15:30 98.7 01/15/17 15:30 16 01/15/17 15:25 73 100 01/15/17 15:20 73 100 01/15/17 15:15 72 100 01/15/17 15:10 73 100 01/15/17 15:05 73 100 01/15/17 15:01 75 127/46 01/15/17 15:00 71 100 01/15/17 14:55 71 100 01/15/17 14:50 70 100 01/15/17 14:45 71 100 01/15/17 14:40 79 100 01/15/17 14:35 80 100 01/15/17 14:31 81 117/48 01/15/17 14:30 85 17 100 01/15/17 14:25 89 100 01/15/17 14:20 87 100 01/15/17 14:15 77 100 01/15/17 14:10 73 100 01/15/17 14:05 74 100 01/15/17 14:01 75 123/53 01/15/17 14:00 79 100 01/15/17 13:55 77 100 01/15/17 13:50 75 100 01/15/17 13:45 78 100 01/15/17 13:40 79 100 01/15/17 13:35 73 100 01/15/17 13:30 17 01/15/17 13:30 78 01/15/17 13:30 73 115/58 100 01/15/17 13:25 74 100 01/15/17 13:20 77 100 01/15/17 13:15 75 100 01/15/17 13:10 80 100 01/15/17 13:05 72 100 01/15/17 13:01 71 119/51 01/15/17 13:00 73 100 01/15/17 12:55 100 01/15/17 12:55 71 01/15/17 12:50 100 01/15/17 12:50 71 01/15/17 12:45 100 01/15/17 12:45 73 01/15/17 12:40 73 01/15/17 12:40 100 01/15/17 12:35 100 01/15/17 12:35 71 01/15/17 12:31 84 123/62 01/15/17 12:30 74 01/15/17 12:30 100 01/15/17 12:25 78 100 01/15/17 12:20 100 01/15/17 12:20 73 01/15/17 12:15 100 01/15/17 12:15 71 01/15/17 12:10 70 100 01/15/17 12:05 72 100 01/15/17 12:01 74 114/46 01/15/17 12:00 72 100 01/15/17 12:00 16 01/15/17 11:55 70 100 01/15/17 11:50 71 100 01/15/17 11:45 69 100 01/15/17 11:40 72 100 01/15/17 11:35 72 100 01/15/17 11:31 75 109/50 01/15/17 11:30 16 01/15/17 11:30 74 100 01/15/17 11:25 69 100 01/15/17 11:20 74 100 01/15/17 11:15 75 100 01/15/17 11:10 72 100 01/15/17 11:05 74 100 01/15/17 11:00 70 115/46 100 01/15/17 11:00 70 01/15/17 10:55 73 100 01/15/17 10:50 71 100 01/15/17 10:45 67 100 01/15/17 10:40 72 100 01/15/17 10:35 70 100 01/15/17 10:30 69 109/47 100 01/15/17 10:30 78 01/15/17 10:25 68 100 01/15/17 10:17 113/44 01/15/17 10:11 65 01/15/17 10:11 66 114/37 01/15/17 10:11 16 100 01/15/17 09:45 98.6 69 12 127/52 100 Nasal Cannula 2 01/15/17 09:30 67 12 123/46 100 Nasal Cannula 2 01/15/17 09:15 69 12 115/36 100 Nasal Cannula 2 01/15/17 09:00 75 14 124/64 99 Nasal Cannula 2 01/15/17 08:54 98.5 84 16 117/56 99 Nasal Cannula 2 Result Diagram: 01/16/17 0526 01/15/17 0349 Objective Remarks GENERAL: Well-nourished, well-developed patient. CARDIOVASCULAR: Regular rate and rhythm without murmurs, gallops, or rubs. RESPIRATORY: Breath sounds equal bilaterally. No accessory muscle use. ABDOMEN/GI: Abdomen soft, non-tender, bowel sounds present. Incision: Clean, dry and intact. Fundus: Firm, U-4, removal of 55ml of fluid from bakri, uterus noted to decrease in size to u-5. Min bloodin bag GENITOURINARY: bakri balloon in place EXTREMITIES: No cyanosis or edema, non-tender, without signs of DVT. Medications and IVs Current Medications Medications (Trade) Dose Ordered Sig/Bharat Route Start Time Stop Time Status Last Admin (NS Flush) 2 ml UNSCH PRN IV FLUSH 01/15/17 03:30 (Methergine) 0.2 mg Q8HR PO 01/15/17 14:00 01/16/17 05:36 (Mylicon Chew) 80 mg QID PRN PO 01/15/17 09:00 (Percocet 5-325 Mg) 1 tab Q4H PRN PO 01/15/17 09:00 (Percocet 5-325 Mg) 2 tab Q4H PRN PO 01/15/17 09:00 (Linnette-Colace) 2 tab Q12H PRN PO 01/15/17 09:00 (M-M-R Ii Inj) 0.5 ml ONCE ONCE SQ 01/16/17 16:00 01/16/17 16:01 (Boostrix Inj) 0.5 ml ONCE ONCE IM 01/16/17 16:00 01/16/17 16:01 (Zofran Inj) 4 mg Q6H PRN IV PUSH 01/15/17 09:00 Miscellaneous Information ALL NURSING DEPARTME... UNSCH PRN .XX 01/15/17 08:58 01/16/17 08:57 Morphine Sulfate 4 mg 4 mg Q3H PRN IV PUSH 01/15/17 10:45 (Lr 1000 ml Inj) 1,000 ml @ 100 mls/hr Q10H IV 01/15/17 16:30 01/16/17 05:37 (Ofirmev Inj) 1,000 mg Q8HR IV 01/15/17 22:00 01/16/17 14:01 01/16/17 05:37 Assessment/Plan Assessment and Plan POD 8 primary cd, pod 1 D&C with placement of uterine tamponade balloon - balloon deflated partially this am - anemia- vital signs stable, hg 7.9 to 7.2, s/p 1 unit of prbc. will repeat hgb and based on pt symptoms may offer another transfusion. Ada Colón MD Jan 16, 2017 08:25
[2017-01-16 10:28] LABS: AUTOMATED NEUTROPHIL # 8.7 TH/MM3 (1.8-7.7); BASOPHIL % 0.3 % (0.0-2.0); EOSINOPHIL # 0.1 TH/MM3 (0-0.4); EOSINOPHIL % 0.9 % (0.0-4.0); LYMPH % 20.9 % (9.0-44.0); LYMPHOCYTE # 2.5 TH/MM3 (1.0-4.8); MEAN CELL VOLUME 84.1 FL (80.0-100.0); MEAN CORPUSCULAR HEMOGLOBIN 28.2 PG (27.0-34.0); MEAN CORPUSCULAR HGB CONC 33.5 % (32.0-36.0); NEUT % 72.9 % (16.0-70.0); PLATELET COUNT 351 TH/MM3 (150-450); RED BLOOD COUNT 2.48 MIL/MM3 (4.00-5.30); RED CELL DISTRIBUTION WIDTH 14.7 % (11.6-17.2); WHITE BLOOD COUNT 11.9 TH/MM3 (4.0-11.0)
[2017-01-16 10:31] LABS: HEMO FLAGS DIFF FINAL
[2017-01-16 10:38] LABS: HEMATOCRIT 20.8 % (35.0-46.0)
[2017-01-16] MEDS ORDERED: DIPHTH/TETANUS/ACEL PERTUSSIS (BOOSTER) 0.5 ML VIAL/PFS IM ONE (16:00)
[2017-01-16] MEDS ORDERED: MEASLES, MUMPS, RUBELLA VACCINE 0.5 ML VIAL SQ ONE (16:00)
--- NOTE | 2017-01-16 17:02 | MP ---
cc: FRANTZ HNUT MD DATE OF SURGERY 01/15/17 PREOPERATIVE DIAGNOSIS One week out hemorrhage acute with unstable vitals POSTOPERATIVE DIAGNOSIS 1. One week out hemorrhage acute with unstable vitals 2. Uterine subinvolution PROCEDURE 1. Manual extraction of significant clots 2. D&C with a large curette 3. Placement of Bakri hemostasis balloon ANESTHESIA General SURGEON Rosalino Hunt MD HAM MARKER Evelyn, [place] III FINDINGS The patient was brought directly from the emergency room upstairs after evaluation and initiation of treatment by Dr. Adriana Newman. She had come in after initiating some bright red bleeding last night. Her week prior had been uneventful. She did not have significant cramping. No bleeding progressed to heavy with clots and, when she came in, she initially appeared to be stable but has progressed. Her vitals showed she was losing significant intravascular volume and team was mobilized to evaluate intraoperatively and provide products as indicated. By the time I came in and was appraised of the situation, she had received a red blood cells but no fresh frozen or platelets. She was alert, oriented and having a mild amount of bleeding. She was taken back to the OR where a moderate amount of clots and a fairly firm uterus was removed. The intrauterine scar was carefully evaluated manually. There were areas of irregularities suggesting minimal placental tissue. These were all thoroughly curetted out of the intrauterine cavity in a 360 degree and fundal manner and sent to pathology. At this point, the bleeding was a trickle. The uterus was still subinvoluted about maybe 12-14 weeks size. The Bakri ball was placed and about 350 mL were instilled to place it up against the intrauterine cavity and tamponade the basalis layer. At this point, she showed no active bleeding and was stable. She was taken to the recovery room in stable condition and then to labor and delivery. PROCEDURE IN DETAIL The patient was identified as Aliza Oneill. Her permit was checked. A timeout was performed. She was given 2 grams of Ancef. She was placed in dorsal lithotomy position. Examination under anesthesia was performed. Retractors were placed and the cervix was grasped at 12 and six with ring forceps and a wide banjo was used to curette out the majority of the tissue left. Careful evaluation manually revealed no defect in the anterior abdominal wall and no obvious residual tissue elsewhere. At this point, the Bakri balloon was inserted and filled to 350 mL without difficulty. She tolerated this procedure well. Her Nunez catheter was in place and then the Bakri was attached as appropriate. She was placed in dorsal supine position, awaken and taken to the recovery room in stable condition. At this point, I believe she has received 2 units of red cells, her hemoglobin was eight and she was clinically stable. MD KIMBER Worthy/SA /9:50 AM /4:48 PM MTDD
[2017-01-17 04:14] LABS: AUTOMATED NEUTROPHIL # 8.1 TH/MM3 (1.8-7.7); BASOPHIL # 0.1 TH/MM3 (0-0.2); BASOPHIL % 0.5 % (0.0-2.0); EOSINOPHIL # 0.4 TH/MM3 (0-0.4); EOSINOPHIL % 2.9 % (0.0-4.0); HEMATOCRIT 26.6 % (35.0-46.0); HEMO FLAGS DIFF FINAL; LYMPH % 25.6 % (9.0-44.0); LYMPHOCYTE # 3.1 TH/MM3 (1.0-4.8); MEAN CELL VOLUME 82.3 FL (80.0-100.0); MEAN CORPUSCULAR HEMOGLOBIN 27.2 PG (27.0-34.0); PLATELET COUNT 317 TH/MM3 (150-450); RED BLOOD COUNT 3.23 MIL/MM3 (4.00-5.30); RED CELL DISTRIBUTION WIDTH 16.5 % (11.6-17.2); WHITE BLOOD COUNT 12.2 TH/MM3 (4.0-11.0)
[2017-01-17] MEDS: METHYLERGONOVINE MALEATE 0.2 MG TAB PO SCH (06:23)
--- NOTE | 2017-01-17 08:22 | HHI.PR ---
CREDIT COMPLIANCE OFFICER Note Note S- Feeling groggy and a little weak minimal bleeding to none O- H/H have come up slightly vitals stable fundus not palpable perineum dry negative homans A- stable after delayed PPH and treatment with evacuation and bakri balloon etiology unclear P home post venofir with script for methergine prn discussed activity and return to work Lizbet Hunt MD Jan 17, 2017 08:22
--- NOTE | 2017-01-17 08:26 | HHI.DCPOC ---
Discharge Care Plan Report Symptoms to Your Doctor -Temperate above 100.5 degrees -Redness, of incision or excessive or foul smelling drainage -Unusual pain or calf pain -Increased vaginal bleeding -Painful or difficulty urinating -Feelings of extreme sadness or anxiety after 2 weeks Goals to Promote Your Health * To prevent worsening of your condition and complications * To maintain your health at the optimal level Directions to Meet Your Goals Take your medications as prescribed Follow your dietary instruction Follow activity as directed Ensure plenty of rest for recovery Drink fluids for hydration Keep your appointments as scheduled Take your immunizations and boosters as scheduled If your symptoms worsen call your PCP, if no PCP go to Urgent Care Center or Emergency Room Smoking is Dangerous to Your Health. Avoid second hand smoke Call the 24-hour crisis hotline for domestic abuse at Lizbet Hunt MD Jan 17, 2017 08:26
[2017-01-17] MEDS: LACTATED RINGER'S 1000 ML INJ 1,000 ML IV SCH (08:30)
[2017-01-17] MEDS ORDERED: IRON SUCROSE 100 MG/5 ML VIAL IV PUSH ONE (08:30)
[2017-01-17 08:45] VITALS: BP 115/51; PULSE 86; RESP 16; TEMP 98.5; O2SAT 96
[2017-01-17] MEDS ORDERED: IRON SUCROSE INJ 200 MG in SODIUM CHLORIDE 0.9% INJ 100 ML IV ONE (08:45)
== END 2017-01-17 11:54 | disposition home or self-care (01) | DRG 769 ==
LOC: NEPE 03:04 → NEDH 05:21 → UNDOADMOB 05:22 → NEDH 05:22 → H2EA 10:14 → H1EA 16:58 → H2EA 16:58 → OBSVTOIN 01-16 11:39 → UNDODISOB 01-17 11:54
PROVIDERS: ADMIT Obstetrics & Gynecology; ATTEND Obstetrics & Gynecology
PROC: 0UDB7ZZ Extraction of Endometrium, Via Natural or Artificial Opening (ICD-10-PCS; 2017-01-15)
PROC: 0UCGXZZ Extirpation of Matter from Vagina, External Approach (ICD-10-PCS; 2017-01-15)
PROC: 3E023GC Introduction of Other Therapeutic Substance into Muscle, Percutaneous Approach (ICD-10-PCS; 2017-01-15)
PROC: 30233N1 Transfusion of Nonautologous Red Blood Cells into Peripheral Vein, Percutaneous Approach (ICD-10-PCS; 2017-01-15)
PROC: 0W3R7ZZ Control Bleeding in Genitourinary Tract, Via Natural or Artificial Opening (ICD-10-PCS; principal; 2017-01-15 07:44)
DX: O72.2 Delayed and secondary postpartum hemorrhage (principal); R00.1 Bradycardia, unspecified; J45.909 Unspecified asthma, uncomplicated; O90.89 Other complications of the puerperium, not elsewhere classified; O90.81 Anemia of the puerperium; O99.53 Diseases of the respiratory system complicating the puerperium; D64.9 Anemia, unspecified
CPT/HCPCS: 36430; 74177; 80048; 81001; 85014; 85018; 85025; 85027; 85610; 85730; 86850; 86900; 86901; 86920; 87086; 88305; 93005; G0378; J0131; J0461; J0690; J1756; J2210; J2370; J2405; J2590; J2710; J3010; J7030; J7120; P9016; Q9967

== ENCOUNTER → 2017-03-28 | Outpatient (CLI) | payer OTHER ==
[~2017-03-28] MED LIST changes: -IBUP600 PO; -OXYC1TAB63 PO; +PREN29TA PO
[2017-03-28 11:38] LABS: AUTOMATED NEUTROPHIL # 4.3 TH/MM3 (1.8-7.7); BASOPHIL % 0.5 % (0.0-2.0); EOSINOPHIL # 0.4 TH/MM3 (0-0.4); EOSINOPHIL % 5.1 % (0.0-4.0); HEMATOCRIT 35.2 % (35.0-46.0); HEMO FLAGS DIFF FINAL; LYMPH % 30.2 % (9.0-44.0); LYMPHOCYTE # 2.2 TH/MM3 (1.0-4.8); MEAN CELL VOLUME 79.9 FL (80.0-100.0); MEAN CORPUSCULAR HEMOGLOBIN 25.9 PG (27.0-34.0); MEAN CORPUSCULAR HGB CONC 32.5 % (32.0-36.0); NEUT % 58.2 % (16.0-70.0); PLATELET COUNT 292 TH/MM3 (150-450); WHITE BLOOD COUNT 7.3 TH/MM3 (4.0-11.0)
[2017-03-28 11:53] LABS: BLOOD, URINE TRACE (NEG); GLUCOSE,URINE NEG (NEG); KETONE, URINE NEG (NEG); MUCUS URINE FEW /lpf (OCC); NITRITE,URINE NEG (NEG); PH, URINE 5.5 (5.0-8.5); SQUAMOUS EPITHELIAL CELL URINE 3 /hpf (0-5); URINE COLOR YELLOW (YELLW/STRAW)
[2017-03-28 11:54] LABS: COMMENT (UR) CULT NOT INDICATED; CULTURE IF INDICATED CULT NOT INDICATED
[2017-03-28 12:00] LABS: ANION GAP 6 MEQ/L (5-15); BICARBONATE 30.1 MEQ/L (21.0-32.0); BLOOD UREA NITROGEN 17 MG/DL (7-18); CHLORIDE 104 MEQ/L (98-107); GLOMERULAR FILTRATION RATE 74 ML/MIN (>89); POTASSIUM 3.9 MEQ/L (3.5-5.1); SODIUM (NA) 140 MEQ/L (136-145)
[2017-03-28 12:11] LABS: BHCG SCREEN QUALITATIVE LESS THAN 1 MIU/ML (0-5)
--- NOTE | 2017-03-29 17:59 | EKG ---
Date Performed: 03/28/2017 Time Performed: 11:12:55 PTAGE: 41 years EKG: Sinus rhythm NORMAL ECG PREVIOUS TRACING : 01/15/2017 06.40 Compared to prior tracing no significant change DOCTOR: Kenia Candelario Interpretating Date/Time 03/29/2017 17:59:22
== END ==
LOC: CPRE 10:38
PROVIDERS: ATTEND Obstetrics & Gynecology
DX: Z01.810 Encounter for preprocedural cardiovascular examination (principal); Z01.812 Encounter for preprocedural laboratory examination
CPT/HCPCS: 80048; 81001; 84703; 85025; 93005